=== PATIENT | male | born 1985 | race African-American/Black ===

== ENCOUNTER 2022-11-15 09:30 | Emergency (ER) | payer OTHER ==
[2022-11-15] MEDS ORDERED: KETOROLAC TROMETHAMINE 15 MG/ML VIAL IM ONE (09:32)
[2022-11-15 09:47] VITALS: BP 104/61; PULSE 64; RESP 20; TEMP 98.1; BMI 28.1
[2022-11-15 10:22] LABS: INR 1.27 (0.83-1.09); PROTHROMBIN TIME (PATIENT) 14.6 SEC (9.7-13.0)
[2022-11-15 10:24] LABS: ACTIVATED PTT 32.5 SECONDS (25.2-36.5)
[2022-11-15 10:27] LABS: HEMATOCRIT 39.5 % (35.4-49); HEMOGLOBIN 13.3 G/dL (11.7-16.9); MCH 29.3 pg (25.7-33.7); MCHC 33.8 g/dl (32.0-35.9); MEAN CELL VOLUME 86.8 fl (80-96); MEAN PLT VOLUME 7.6 fl (7.5-11.1); PLATELET COUNT 279.4 10^3/uL (134-434); RBC 4.55 10^6/uL (4.00-5.60); RDW 14.4 % (11.9-15.9)
[2022-11-15 10:28] LABS: ALBUMIN 3.9 g/dl (3.4-5.0); BILIRUBIN,TOTAL 0.5 mg/dl (0.2-1); CALCIUM 8.9 mg/dl (8.5-10)
== END 2022-11-15 13:40 | disposition home or self-care (01) ==
LOC: FER 09:30
PROC: 3E0233Z Introduction of Anti-inflammatory into Muscle, Percutaneous Approach (ICD-10-PCS; principal; 2022-11-15)
DX: R07.9 Chest pain, unspecified (principal)
CPT/HCPCS: 36415; 71046-TC-FY; 80053; 84484; 85027; 85610; 85730; 93005; 99285-25

== ENCOUNTER 2022-12-19 08:41 | Emergency (ER) | payer OTHER ==
[2022-12-19] MEDS ORDERED: NAPROXEN 500 MG TABLET PO ONE (08:48)
[2022-12-19] MEDS ORDERED: NAPROXEN 500 MG TABLET ONE (09:26)
[2022-12-19 09:35] VITALS: BP 111/71; PULSE 66; RESP 18; TEMP 98.8; BMI 27.7
== END 2022-12-19 09:48 | disposition home or self-care (01) ==
LOC: FER 08:41
DX: S69.92XA Unspecified injury of left wrist, hand and finger(s), initial encounter (principal); S60.211A Contusion of right wrist, initial encounter; W23.1XXA Caught, crushed, jammed, or pinched between stationary objects, initial encounter; Y93.81 Activity, refereeing a sports activity; Y99.0 Civilian activity done for income or pay
CPT/HCPCS: 73140-TC-LT-FY; 99283-25